=== PATIENT | female | born 1950 | race Caucasian/White ===

== ENCOUNTER 2019-06-11 06:54 | Emergency (ER) | payer MEDICARE ==
[2019-06-11 07:04] VITALS: BP 123/80; PULSE 79; RESP 18; TEMP 98.4
[2019-06-11] MEDS ORDERED: MORPHINE SULFATE 4 MG/ML SYRINGE IM STA (07:21)
[2019-06-11] MEDS ORDERED: DIAZEPAM 5 MG/ML 2 ML INJ IM ONE (07:21)
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
== END 2019-06-11 07:47 | disposition home or self-care (01) ==
LOC: EC 06:54
DX: S16.1XXA Strain of muscle, fascia and tendon at neck level, initial encounter (principal); Z88.6 Allergy status to analgesic agent; Z88.0 Allergy status to penicillin; Z88.8 Allergy status to other drugs, medicaments and biological substances; Z91.013 Allergy to seafood; Z91.018 Allergy to other foods; Z91.011 Allergy to milk products; Z88.5 Allergy status to narcotic agent; Z88.1 Allergy status to other antibiotic agents; X58.XXXA Exposure to other specified factors, initial encounter
CPT/HCPCS: 99283; 96372 ×2; J2270; J3360

== ENCOUNTER → 2021-07-15 | Outpatient (CLI) | payer MEDICARE ==
--- NOTE | 2021-07-15 11:53 | XR ---
EXAMINATION TYPE: XR lumbar spine 3 views DATE OF EXAM: 07/15/2021 Comparison: None Clinical History: 70-year-old female [id number] LBP Findings: Osteopenia. Mild multilevel degenerative disc disease with endplate spondylosis. Degenerative grade 1 retrolisthesis L2-L3. Facet arthropathy throughout. Vertebral body heights are preserved. Cholecyste ctomy clips. Impression: Osteopenia. No vertebral compression collapse. Mild multilevel degenerative disc disease. Facet arthr opathy throughout with degenerative grade 1 retrolisthesis at L2/L3.
== END | disposition home or self-care (01) ==
LOC: RADXRYALE 10:40
PROVIDERS: ATTEND Nurse Practitioner
DX: M54.50 Low back pain, unspecified (principal); M51.37 Other intervertebral disc degeneration, lumbosacral region; M46.97 Unspecified inflammatory spondylopathy, lumbosacral region; M85.88 Other specified disorders of bone density and structure, other site
CPT/HCPCS: 72100